=== PATIENT | female | born 2000 | race African-American/Black ===

== ENCOUNTER 2019-03-05 09:16 | Day surgery (SDC) | payer OTHER ==
[~2019-03-05] VITALS: Ht 170.2 cm; Wt 132.4 kg
[~2019-03-05 09:16] MED LIST: ACET500T68 PO; ALBU2.5V8 IH; BUPIVAC MPF-EPI 0.5%-1:200000 30 ML VIAL. ONE; FAMO20TA5 PO; HYDR-2761 PO; HYDROmorphone 2 MG/ML VIAL IV PRN; IV RINGERS,LACTATED 1000ML 1,000 ML IV SCH; LIDOCAINE 1% PF 2 ML VIAL. ID PRN; LIDOCAINE 2% PF 5 ML VIAL. ONE; MIDAZOLAM HCL/PF 2 MG/2 ML VIAL. ONE; MORPHINE SULFATE 2 MG/ML VIAL. IV PRN; ONDA4TAB12 PO; ONDANSETRON PF 4 MG/2 ML VIAL. IV PRN; PROCHLORPERAZINE 10 MG/2 ML VIAL. IV PRN; PROPOFOL 20 ML IV ONE; ROCURONIUM 100 MG/10 ML VIAL. ONE; fentaNYL PF VIAL 100 MCG/2 ML VIAL IV PRN; fentaNYL PF VIAL 100 MCG/2 ML VIAL ONE
[2019-03-05] MEDS ORDERED: NEOSTIGMINE METHYLSULFATE 5 MG/5 ML SYRINGE. ONE (09:17)
[2019-03-05] MEDS ORDERED: GLYCOPYRROLATE 1 MG/5 ML VIAL. ONE (09:18)
[2019-03-05 09:35] LABS: U PREG PATIENT NEGATIVE (NEG)
[2019-03-05] MEDS ORDERED: SUCCINYLCHOLINE 200 MG/10 ML VIAL. ONE (09:42)
--- NOTE | 2019-03-05 10:46 | PDOC4 ---
Operative Note Operative Note Date: 03/05/2019 Preoperative diagnosis: Chronic cholecystitis Postoperative diagnosis: Same Procedure: Laparoscopic cholecystectomy Surgeon: Jose Juan Specimen: Gallbladder Dictation: Patient is a 18-year-old female who during had right upper quadrant abdominal pain postprandial nausea discontinued after ultrasound showing gallstones procedure of laparoscopic cholecystectomy was explained to the patient in detail all risks benefits were also discussed including bleeding infection injury to intra-abdominal contents possibly necessitating further or open operations alternatives to this procedure also discussed with patient who seemed to understand and gave both verbal and written consent to have the procedure performed. Patient was taken to the operating room placed supine position general anesthesia was initiated once patient was sleep and intubated her abdomen was prepped and draped usual sterile fashion using ChloraPrep and area just below the umbilicus was injected with quarter percent Marcaine with epinephrine incision was made [place] blade scalpel Veress needle was placed within the abdomen creating pneumoperitoneum. The 11 millimeter port was placed and a 5 mm camera was placed within the abdomen abdomen was inspected no other abdomen maladies were noted. A 5 mm port was placed in the epigastrium a 5 OmegaPort was placed in the right lateral abdomen and a 5 OmegaPort placed in the right mid abdomen the dome of the gallbladder is grasped and retracted cephalad the infundibulum of the gallbladder is grasped and retracted laterally exposing the triangle adherent tissues of the triangle were taken down exposing the cystic duct and cystic artery both were doubly clipped and transected the gallbladder was taken off the liver with hook electrocautery placed in Endo Catch bag and removed from the umbilicus right upper quadrant was irrigated and suctioned dry hemostasis deemed to be appropriate and the pneumoperitoneum was reduced all ports removed the fascial defect at the umbilicus was closed with [id number] 0 Vicryl suture and the skin is approximated all port sites with 4 subarticular Monocryl Mastisol Steri-Strips and island dressings were applied. The patient was awakened and extubated in the operating room taken to recovery in stable condition all sponge instrument needle counts listed as correct estimate blood loss 10 mL MICHELLE MIDDLETON MD Mar 05, 2019 10:46
--- NOTE | 2019-03-05 10:48 | DISCH ---
DISCHARGE INSTRUCTIONS Condition on Discharge Condition on Discharge: Stable Activity After Discharge Activity Instructions for Disc: Avoid exertion Other activity instructions: no lifting more than 20 pounds for 2 weeks Diet after Discharge Diet after Discharge: Low Fat Wound Incision Care Other wound/incision instructi: May shower in 24 hours Contacting the after DC Call your doctor for: If your condition worsens Follow-Up Follow up with: Dr. Middleton in 2 weeks MICHELLE MIDDLTEON MD Mar 05, 2019 10:48
[2019-03-05] MEDS ORDERED: fentaNYL PF VIAL 100 MCG/2 ML VIAL ONE ×3 (11:02)
[2019-03-05] MEDS ORDERED: PROCHLORPERAZINE 10 MG/2 ML VIAL. ONE (11:03)
[2019-03-05] MEDS ORDERED: OXYC1TAB15 PO (11:18)
[2019-03-05 12:05] VITALS: BP 120/74
--- NOTE | 2019-03-09 15:06 | PATHOLOGY ---
[facility] Accession Number: [id number] . 01 Material submitted: . gallbladder - GALLBLADDER . 01 Clinical history: . Chronic cholecystitis . 02 Diagnosis: Gallbladder, cholecystectomy: - Chronic cholecystitis. - Cholelithiasis. - Adjacent lymph node with focal lipogranuloma. (SKM:pit 03/09/2019) QTP/03/09/2019 . 02 Electronically signed: . Marc Pat MD, Pathologist NPI- [id number] . 01 Gross description: . The specimen is received in formalin, labeled "Romo, Wryzania, gallbladder" and consists of an intact green-maldonado, smooth, and focally hemorrhagic gallbladder measuring 10.0 cm in length and up to 3.4 cm in diameter. The margin is inked black. Opening reveals a lumen filled with tenacious green bile and multiple yellow-green mulberry to multifaceted calculi ranging from 0.1-1.6 cm (5.5 x 5.5 x 1.2 cm aggregate). The mucosa is green and trabeculated with an average wall thickness 0.1 cm. No masses or lesions are identified. Located adjacent the neck is a lymph node candidate measuring 1.5 x 0.9 cm Land [employer] sections are submitted in A1-A2 with the lymph node entirely submitted in A2. (SDY; 03/05/2019) SYU/SYU . 02 Pathologist provided ICD-10: K80.10 . 02 CPT . 903780 Specimen Comment: A courtesy copy of this report has been sent to Specimen Comment: [phone], . Specimen Comment: Report sent to / DR MORENO Performed at: [address] [place], [place] [address] [address], [place], [place] [id number] MD Rigoberto Toney MD Phone: [phone] Performed at: [address] [id number] MD Steven Cisneros MD Phone: [phone]
== END 2019-03-05 12:05 | disposition home or self-care (01) ==
LOC: SURG 09:16
PROVIDERS: ATTEND Surgery
DX: K80.10 Calculus of gallbladder with chronic cholecystitis without obstruction (principal); L92.8 Other granulomatous disorders of the skin and subcutaneous tissue; Z88.1 Allergy status to other antibiotic agents; Z88.8 Allergy status to other drugs, medicaments and biological substances; Z79.899 Other long term (current) drug therapy; E66.01 Morbid (severe) obesity due to excess calories; Z68.52 Body mass index [BMI] pediatric, 5th percentile to less than 85th percentile for age; Z82.49 Family history of ischemic heart disease and other diseases of the circulatory system; F17.210 Nicotine dependence, cigarettes, uncomplicated
CPT/HCPCS: 47562; 81025; A7015; J0330; J0780; J1956; J2001; J2250; J2704; J2710; J3010; J3490; J7030; J7120; 88304

== ENCOUNTER → 2019-10-06 | Day surgery (SDC) | payer OTHER ==
[~2019-10-06] MED LIST changes: -ALBU2.5V8 IH; -BUPIVAC MPF-EPI 0.5%-1:200000 30 ML VIAL. ONE; -HYDROmorphone 2 MG/ML VIAL IV PRN; +IV RINGERS,LACTATED 1000ML 1,000 ML IV ONE; -IV RINGERS,LACTATED 1000ML 1,000 ML IV SCH; -LIDOCAINE 1% PF 2 ML VIAL. ID PRN; -LIDOCAINE 2% PF 5 ML VIAL. ONE; -MIDAZOLAM HCL/PF 2 MG/2 ML VIAL. ONE; +MIDAZOLAM HCL/PF 5 MG/5 ML VIAL. IV ONE; +MIDAZOLAM HCL/PF 5 MG/5 ML VIAL. ONE; -MORPHINE SULFATE 2 MG/ML VIAL. IV PRN; -ONDANSETRON PF 4 MG/2 ML VIAL. IV PRN; +OXYC1TAB15 PO; +PANT20TA2 PO; -PROCHLORPERAZINE 10 MG/2 ML VIAL. IV PRN; -PROPOFOL 20 ML IV ONE; +PROVENTIL HFA6.7 GM IH; -ROCURONIUM 100 MG/10 ML VIAL. ONE; +fentaNYL PF VIAL 100 MCG/2 ML VIAL IV ONE; -fentaNYL PF VIAL 100 MCG/2 ML VIAL IV PRN
[2019-10-06 17:35] VITALS: BP 148/77
== END ==
LOC: ENDOS 15:15
PROVIDERS: ATTEND Internal Medicine Gastroenterology
DX: R10.13 Epigastric pain (principal); K29.50 Unspecified chronic gastritis without bleeding; D64.9 Anemia, unspecified; F41.9 Anxiety disorder, unspecified; J45.909 Unspecified asthma, uncomplicated; F32.9 Major depressive disorder, single episode, unspecified; I10 Essential (primary) hypertension; Z90.49 Acquired absence of other specified parts of digestive tract; Z88.1 Allergy status to other antibiotic agents; Z88.3 Allergy status to other anti-infective agents; Z72.89 Other problems related to lifestyle
CPT/HCPCS: 43235; 81025; J2250; J3010